=== PATIENT | female | born 1940 | race Caucasian/White ===

== ENCOUNTER 2016-07-07 23:45 | Inpatient (IN) | payer MEDICARE, OTHER ==
--- NOTE | ~2016-07-07 | HP ---
History And Physical [place] [id number] [facility] [place]. [address] NAME: JARRED GUERRERO : 40 STATUS : ADM IN [facility]#: [id number] AGE: 75 ADM/REG DATE : 07/08/16 MR#: [id number] REPORT SERV DATE: 07/08/16 DICTATED BY: JAI GIBSON DATE: 07/08/16 REPORT STATUS : Draft TRANSCRIBED BY: MODL DATE: 07/08/16 DATE OF ADMISSION: 07/07/2016 CHIEF COMPLAINT: Encephalopathy and weakness. HISTORY OF PRESENT ILLNESS: This is a 75-year-old lady with history of C5 paraplegia, diabetes, who has had frequent urinary tract infections presenting with encephalopathy and generalized weakness. The patient was apparently doing fine up until yesterday when she started sleeping all day. This morning patient woke up confused. These are very typical of her symptoms when she gets urinary tract infections and thus the decided to bring her to the ER for further evaluation and care. The patient otherwise did not have any fevers or chills, and the patient normally does not get any urinary symptoms. In the ER, patient was found to be actually quite hypotensive upon arrival with blood pressure of 72/56. The patient was also slightly tachycardic with heart rate in the 100s. Initial lab evaluation revealed an acute kidney injury with creatinine of 2.94 whereas her baseline renal function is normal. CBC showed only mild leukocytosis with white blood cell count of 11.9. Urinalysis was grossly positive for urinary tract infection. Internal Medicine consultation was requested for admission of the patient for further evaluation and care. In reviewing pertinent past medical history, the patient's actually reveals that she was actually hospitalized at [facility] recently for a pneumonia as well as urinary tract infection. The patient apparently required an ICU stay and she apparently was on a mechanical ventilator. This was between 06/13/2016 to 06/25/2016, and at discharge, patient was healthy enough to be discharged home instead of going to a rehab. REVIEW OF SYSTEMS: The patient did not have any fevers or chills. Also, 14-point review of systems reviewed and negative other than mentioned above. MEDICATIONS: The list is still pending at this time. ALLERGIES: THE PATIENT'S ALLERGY LIST IS VERY LONG AND EXTENSIVE AND SHOULD REALLY BE REVIEWED. HERE IS A LIST: 1. DULERA. 2. METHYLDOPA. 3. LISINOPRIL. 4. LEVODOPA. 5. PREDNISONE. 6. DOXYCYCLINE. 7. ADHESIVE TAPE. 8. COREG. 9. CLONIDINE. History And Physical [address] [place]. [address] NAME: JARRED GUERRERO : 40 STATUS : ADM IN [facility]#: [id number] AGE: 75 ADM/REG DATE : 07/08/16 MR#: [id number] REPORT SERV DATE: 07/08/16 DICTATED BY: JAI GIBSON DATE: 07/08/16 REPORT STATUS : Draft TRANSCRIBED BY: ELSA DATE: 07/08/16 10.DILAUDID. 11.TIMOLOL. 12.VANCOMYCIN. 13.DIOVAN. 14.VIOXX. PAST MEDICAL HISTORY: 1. C5 paraplegia. 2. History of cerebrovascular accident. 3. Chronic hypoxic respiratory failure, on 2 L of oxygen at home. 4. Obstructive sleep apnea, on CPAP. 5. Morbid obesity. 6. Lupus and Sjogren syndrome. 7. Depression and anxiety as well as panic attacks. 8. Chronic LBBB. 9. 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 10.Diabetes. 11.Fibromyalgia. 12.Dementia. 13.History of frequent UTIs and previous ESBL Pseudomonas urinary tract infection. PAST SURGICAL HISTORY: 1. PEG tube in the past. 2. Hiatal hernia. 3. C-spine surgery. 4. Hysterectomy. 5. Knee surgeries. FAMILY HISTORY: 1. The patient's mother had breast cancer. 2. The patient's father had TB. SOCIAL HISTORY: The patient does not smoke, drink alcohol, or use any illicit drugs. The patient lives at home with her who is at bedside. PHYSICAL EXAMINATION: VITAL SIGNS: Temperature 97.7, blood pressure 72/56, pulse 102, respiratory rate is 16, and saturating 95% on 4 L of oxygen per nasal cannula. NEUROLOGIC: The patient is alert and oriented x3 with no focal neurologic deficits. GENERAL: The patient is awake, does not appear to be in acute distress, and she is cooperative. NECK: No JVD. No lymphadenopathy. Normal thyroid. CHEST: No midline sternotomy wound and no tenderness to palpation. LUNGS: Fairly clear to auscultation bilaterally with normal respiratory effort on 4 L of oxygen per nasal cannula. CARDIOVASCULAR: The patient is slightly tachycardic, but otherwise, no murmurs, rubs, or gallops, and PMI is nondisplaced. History And Physical [address] [address] NAME: JARRED GUERRERO : 40 STATUS : ADM IN [facility]#: [id number] AGE: 75 ADM/REG DATE : 07/08/16 MR#: [id number] REPORT SERV DATE: 07/08/16 DICTATED BY: JAI GIBSON DATE: 07/08/16 REPORT STATUS : Draft TRANSCRIBED BY: MODKirk DATE: 07/08/16 ABDOMEN: Soft, nontender, with active bowel sounds and no organomegaly. EXTREMITIES: No edema. Normal distal pulses. No calf tenderness. SKIN: Clean, dry, warm, and intact. LABORATORY DATA: Sodium is 133, potassium 5.3, chloride 94, BUN 69, creatinine is 2.94, glucose 160, and calcium 9.4. LFTs are within normal limits. White blood cell count is 11.9, hemoglobin 11.4, and platelets 282. INR is 1.0. Lactate is 1.1. Troponin is less than 0.02. Procalcitonin level was 0.29. Urinalysis showed a large leukocyte esterase, negative for nitrite, greater than 182 white blood cells, and many bacteria. Chest x-ray is personally interpreted and is nonacute. ABG showed pH of 7.45, pCO2 of 36, PO2 of 57, and oxygen saturation of 88.2% on room air, keeping in mind that patient is on oxygen at baseline at home. ASSESSMENT: This is a 75-year-old lady with history of frequent urinary tract infections presenting with a urinary tract infection with sepsis. 1. Urinary tract infection with sepsis, the patient's blood pressures are in the 70s over 50s but the patient is making good urine and the patient is completely asymptomatic. Historically, patient has had ESBL pseudomonal infections. 2. Acute kidney injury with creatinine of 3, her baseline is normal. 3. Chronic hypoxic respiratory failure, stable. 4. The patient had a recent hospitalization at [facility] that included a mechanical ventilation. This needs to be verified. 5. C5 paraplegia. 6. Diabetes. 7. Lupus. 8. Depression, anxiety, and panic attacks. 9. Fibromyalgia. 10.History of cerebrovascular accident. 11.Obstructive sleep apnea. 12.Dementia. PLAN: The plan is to admit the patient into IMCU. The patient will be given aggressive IV fluid resuscitation. In's and out's will be closely monitored as well as electrolytes and renal function. The patient will also be closely monitored on telemetry, and I will establish a better venous access in the morning with PIC. In the meantime, the patient will be continued on meropenem. I will also go ahead and do a complete infectious workup especially since the patient was just recently released from [facility] after what seems like very complicated hospital stay. I will go ahead and request medical records from [facility]. Otherwise, for the rest of the stable past medical conditions, including diabetes, depression, anxiety, fibromyalgia, dementia, et al, I will continue home medications when the home medication becomes available. Standard DVT prophylaxis. The patient is full code at this time. MARIAH/ELSA History And Physical [address] [address] NAME: JARRED GUERRERO : 40 STATUS : ADM IN [facility]#: [id number] AGE: 75 ADM/REG DATE : 07/08/16 MR#: [id number] REPORT SERV DATE: 07/08/16 DICTATED BY: JAI GIBSON DATE: 07/08/16 REPORT STATUS : Draft TRANSCRIBED BY: ELSA DATE: 07/08/16 Jai Gibson MD / [id number] CC: Josephine Hathaway
--- NOTE | ~2016-07-07 | DS ---
Discharge Summary [facility] [address] [place]. [address] NAME: JARRED GUERRERO : 40 STATUS : ADM IN PAT#: [id number] AGE: 75 ADM/REG DATE : 07/08/16 MR#: [id number] REPORT SERV DATE: 07/24/16 DICTATED BY: CHRISTIANO NICHOLAS DATE: 07/24/16 REPORT STATUS : Draft TRANSCRIBED BY: MODL DATE: 07/24/16 ADMISSION DATE: 07/08/2016 DISCHARGE DATE: ADDENDUM: The patient's on discharge requested her Mayers catheter to be discontinued. He said that she was in diaper before admission, I called Dr. Perry and spoke personally with the patient's urologist, Dr. Perry. He recommended the patient to have Mayers removed, and he said that her is very good at managing her medical problems, and recommendation of Dr. Perry is the patient to discontinue Mayers and to be discharged without Mayers. /ELSA Christiano Nicholas M.D. / [id number] CC: Min Jose Susan R.
--- NOTE | ~2016-07-07 | EHP ---
ER History and Physical [place] [id number] [facility] [place]. [address] NAME: JARRED GUERRERO : 40 STATUS : ADM IN [facility]#: [id number] AGE: 75 ADM/REG DATE : 07/08/16 MR#: [id number] REPORT SERV DATE: 07/16/16 DICTATED BY: MACRINA LINDO DATE: 07/16/16 REPORT STATUS : Draft TRANSCRIBED BY: ELSA DATE: 07/16/16 CHIEF COMPLAINT: Sleeping all the time and confused. HISTORY OF PRESENT ILLNESS: This is a 75-year-old female with a known history of diabetes and C5 paraplegia, family states was confused and weak this morning and was sleeping and fatigued all day yesterday. Her symptoms got worse all day until they called EMS and had her transferred to the emergency room. EMS found her unstable, hypoxic, and hypotensive, and started a line and gave her fluids prior to arrival and assisted her breathing with oxygen. PAST MEDICAL HISTORY: Significant for asthma, sleep apnea, type 2 diabetes, C5 fracture with quadriplegia, lupus, Sjogren's, chronic sacral decubitus. SOCIAL HISTORY: She is nonsmoker, denies alcohol use, did not use any type of recreational drugs. She is disabled and is . REVIEW OF SYSTEMS: Positive for weakness, fever, dyspnea, confusion, and nausea. PHYSICAL EXAMINATION: VITAL SIGNS: Blood pressure is 99/56, temperature is 101.2, pulse 100 to 112, respiratory rate 20 to 24, and sats 90% requiring BiPAP. NEUROLOGIC: The patient is awake and alert and follows commands, oriented x3, no obvious focal deficits. HEENT: Within normal limits. NECK: No adenopathy, rigidity, JVD, or thyromegaly. LUNGS: Decreased breath sounds. No wheezing, rales, or rhonchi, currently on BiPAP. HEART: Regular rate. Tachycardic, but no murmurs, gallops, or rubs. ABDOMEN: Bowel sounds are normal, soft, nontender. No obvious tenderness. No rebound, guarding, mass, or organomegaly. MUSCULOSKELETAL: Normal. EXTREMITIES: Show edema, no erythema, no rashes, normal turgor. SKIN: Warm and dry. DIAGNOSES: 1. Acute renal failure. 2. Sepsis. 3. Urinary tract infection. GS/ELSA LEXIE Chua / [id number] ER History and Physical [address] [place]. [address] NAME: JARRED GUERRERO : 40 STATUS : ADM IN PAT#: [id number] AGE: 75 ADM/REG DATE : 07/08/16 MR#: [id number] REPORT SERV DATE: 07/16/16 DICTATED BY: MACRINA LINDO DATE: 07/16/16 REPORT STATUS : Draft TRANSCRIBED BY: ELSA DATE: 07/16/16 CC: Min Lopez NP
--- NOTE | ~2016-07-07 | CN ---
Consultation Report [facility] [address] [place]. [address] NAME: JARRED RAMSEY : 40 STATUS : ADM IN PAT#: [id number] AGE: 75 ADM/REG DATE : 07/08/16 MR#: [id number] REPORT SERV DATE: 07/09/16 DICTATED BY: CLIF YAO DATE: 07/08/16 REPORT STATUS : Draft TRANSCRIBED BY: MODL DATE: 07/08/16 NEPHROLOGY CONSULT DATE OF CONSULTATION: 07/08/2016 REQUESTING PHYSICIAN: Nazia Dong M.D. REASON FOR CONSULT: Acute kidney injury. HISTORY OF PRESENT ILLNESS: Ms. Ramsey is a pleasant 75-year-old white female, who has had previous episodes of acute kidney injury and is followed in the office of [facility] by Dr. Yeh. She has not been seen there since approximately 07/2015, when creatinine was 1.0. Reviewing records shows that she had acute kidney injury in 09/2013, with creatinine as high as 2.5 and again in 11/2015, with creatinine 1.17. She was recently at [facility] with pneumonia and respiratory failure requiring ventilator with a creatinine that peaked at 1.5. She was admitted through the emergency room yesterday with hypotension having a systolic blood pressure in the 70s and acute kidney injury. On presentation, BUN was 69, creatinine 2.9, potassium 5.3. Urinalysis suggested UTI and urine culture is presently pending. Blood cultures are pending and procalcitonin was normal. Today, her creatinine is down at 2.3. She is nonoliguric without a Mayers catheter. PAST MEDICAL HISTORY: 1. C5 paraplegia. 2. Neurogenic bladder with recurrent UTIs with E. coli ESBL. Apparently, had chronic indwelling Mayers catheter for approximately three months until her recent hospitalization at [facility]. 3. Hypotension. 4. Depression. 5. History of stroke. 6. Reported dementia. 7. Oxygen-dependent COPD. 8. Fibromyalgia. 9. History of bilateral mastectomies. 10.Lupus. 11.Sjogren's. 12.Sleep apnea. MEDICATIONS: Albuterol nebulizers and inhaler, Xanax, aspirin, vitamin D3, Flexeril p.r.n., Cardizem 180 mg daily, Cymbalta, Lasix 60 mg at bedtime, Mucinex p.r.n., hydralazine 10 mg b.i.d., Lortab p.r.n., Prinivil 5 mg at bedtime, Singulair 10 mg daily, MiraLAX, Mirapex, Lyrica 75 mg b.i.d., Exelon patch, Aldactone 25 mg daily. Consultation Report [address] [place]. [address] NAME: JARRED RAMSEY : 40 STATUS : ADM IN PAT#: [id number] AGE: 75 ADM/REG DATE : 07/08/16 MR#: [id number] REPORT SERV DATE: 07/09/16 DICTATED BY: CLIF YAO DATE: 07/08/16 REPORT STATUS : Draft TRANSCRIBED BY: ELSA DATE: 07/08/16 FAMILY HISTORY: Significant for a nephrectomy in her mother, but no ESRD. SOCIAL HISTORY: Nonsmoker. . Supportive . Lives in [place], [place]. REVIEW OF SYSTEMS: Significant for events as per HPI. PHYSICAL EXAMINATION: VITAL SIGNS: Temperature 97.7, pulse 104, respirations 25, blood pressure 195/80, 95% sat 3 L per nasal cannula. Intake and output are not recorded. GENERAL: This is a pleasant elderly white female, who is awake, alert, oriented, and cooperative with the exam. She is being assisted with lunch by her . She is awake, alert, oriented. HEENT: Sclerae without icterus. Conjunctivae not injected. Oropharynx is clear. Mucous membranes are dry. NECK: No JVD. LUNGS: She has diffuse bilateral rhonchi without dyspnea or tachypnea on oxygen per nasal cannula. CARDIAC: Heart rate tachycardic. Rhythm regular. No rub. ABDOMEN: Obese, soft, nontender, nondistended. Bowel sounds present throughout without rebound, guarding, peritoneal signs. EXTREMITIES: Without edema. SKIN: Without rash. NEUROLOGIC: Grossly nonfocal. She does have paraplegia. MUSCULOSKELETAL: Shows no active gout with mild RA deformities. : Deferred. She has cloudy yellow urine in the Mayers catheter. PSYCHIATRIC: Mood and affect are appropriate. LABORATORY DATA: Sodium 137, potassium 4.6, bicarb 25, BUN 62, creatinine 2.3, GFR 20 mL/minute, calcium 8.3, albumin 3.1. Troponin and LFTs are normal. White count down from 11.9-7.0, hemoglobin 9.6, platelets 242,000. INR 1.0. No eosinophils on the differential. Chest x-ray without active infiltrates. ASSESSMENT AND PLAN: Ms. Ramsey has developed another episode of acute kidney injury in the setting of urinary tract infection with hypotension on arrival, anemia, leukocytosis, hypoalbuminemia, paraplegia, oxygen dependent chronic obstructive pulmonary disease, lupus, and Sjogren's. At this point, I suspect she likely had a component of intravascular volume depletion in addition to renal hypoperfusion due to hypotension on admission from possible sepsis physiology. Hold KENTRELL inhibitor, Lasix, and Aldactone. Continue IV fluid hydration. Renal function has improved since admission and hopefully, we will continue to recover to baseline without the need for dialysis. Defer antibiotics to the primary service. Consider evaluation. I Consultation Report [address] [place]. [address] NAME: JARRED RAMSEY : 40 STATUS : ADM IN [facility]#: [id number] AGE: 75 ADM/REG DATE : 07/08/16 MR#: [id number] REPORT SERV DATE: 07/09/16 DICTATED BY: CLIF YAO DATE: 07/08/16 REPORT STATUS : Draft TRANSCRIBED BY: ELSA DATE: 07/08/16 suspect she likely needs to have at least bladder self caths at home and possibly consider replacing Mayers catheter versus proceeding with ileal conduit in the future if infections continue. Her urologist is Dr. Perry. updated at bedside. Continue supportive care. Watch labs. Continue to follow. CHRISTIAN/ELSA Clif aYo M.D. / [id number] CC: Nazia Dong M.D.
--- NOTE | ~2016-07-07 | CN ---
Consultation Report [facility] [address] [place]. [address] NAME: JARRED GUERRERO : 40 STATUS : ADM IN PAT#: [id number] AGE: 75 ADM/REG DATE : 07/08/16 MR#: [id number] REPORT SERV DATE: 07/11/16 DICTATED BY: WILLIS FRANCE DATE: 07/11/16 REPORT STATUS : Draft TRANSCRIBED BY: MODKirk DATE: 07/11/16 CONSULTATION DATE OF CONSULTATION: 07/10/2016 HISTORY: This is a 75-year-old white female who was admitted to [facility] on 07/08/2016 with hypotension, mental status changes, weakness, confusion, etc. In the ER she was felt to have a septic type syndrome and was admitted. Ultimately, her urine cultures grew out ESBL E coli. She has been appropriately treated and is now on Merrem. She had an acute renal injury with a creatinine of 3 at the time of admission and this has now normalized. She is improved considerably with medical management. I have been asked to see her due to her history of UTIs. She is a C5 paraplegic. She has a neurogenic bladder and neurogenic bowel. She is incontinent of both urine and feces. Both drained into the same diaper. She is cared for at home by her . She is reliant upon him for complete care. He reports that he changes her diaper and cleans her three to four times a day. I have seen her in the office and at one point, there was a question of urinary retention, but the performed an intermittent catheterization program on her at home and her residuals really were not that large. He thought due to her urinary leakage it was easier to manage her with a Mayers. She has had significant recurrent UTIs either both with and without a Mayers. She was actually recently hospitalized at [facility] with I believe pneumonia as well as a UTI. She has been on methenamine suppression and has gotten infections even though we have been using this. Her says that normally her urinary tract infections manifest with confusion, lethargy, and sometimes fever. He reports having her in the hospital as often as once a month for infection. Review of urine cultures show ESBL E coli UTI in January, March, twice in June, and now in July. Prior to that, she has had frequent UTIs with other organisms including Pseudomonas and E coli. PAST MEDICAL HISTORY: Otherwise extensive and includes fairly morbid obesity, history of a CVA, respiratory insufficiency on oxygen at home, sleep apnea, lupus, Sjogren syndrome, depression, anxiety, panic attacks, bundle branch block, sacral decubitus, diabetes, a question of some degree of dementia. PAST SURGICAL HISTORY: She describes having surgery for C-spine, hiatal hernia, hysterectomy, and knee surgeries. She has also had breast cancer and has had a TRAM flap in the past, and she describes repair of an extensive abdominal hernia with mesh. SOCIAL HISTORY: She lives at home. She is completely disabled. She is completely reliant on her as her caregiver. CURRENT MEDICATIONS: Current medications have been reviewed. At this point in time, her only medication is methenamine. She is on Merrem for her UTI. ALLERGIES: SHE HAS AN EXTENSIVE ALLERGY LIST INCLUDING ANTIBIOTICS WITH VANCOMYCIN AND DOXYCYCLINE. Consultation Report [address] [place]. [address] NAME: JARRED GUERRERO : 40 STATUS : ADM IN [facility]#: [id number] AGE: 75 ADM/REG DATE : 07/08/16 MR#: [id number] REPORT SERV DATE: 07/11/16 DICTATED BY: WILLIS FRANCE DATE: 07/11/16 REPORT STATUS : Draft TRANSCRIBED BY: ELSA DATE: 07/11/16 PHYSICAL EXAMINATION: GENERAL: She is a pleasant, white female, in no distress. She is alert, oriented, and conversive. She is afebrile. VITAL SIGNS: Stable. ABDOMEN: Quite morbidly obese. She has an old Pfannenstiel incision. She has an old incision slightly more superior that runs from iliac crest, she has incision around her belly button, all of which are well healed. She is wearing a diaper. She has a Mayers catheter indwelling, the urine is clear grossly. LABORATORY DATA: Currently white count is 6.9, hemoglobin and hematocrit 10.6 and 32.8. BUN and creatinine are 30 and 1.0 respectively. Most recent urine culture shows ESBL E coli. IMPRESSION: 1. Admitted with hypotension, confusion, consistent with septic picture. 2. Extended-Spectrum Beta-Lactamase Escherichia coli urinary tract infection. 3. History of frequent recurrent urinary tract infections. 4. Neurogenic bladder with complete urinary incontinence. 5. Bowel incontinence. 6. Acute kidney injury, now resolved. 7. Chronic respiratory failure, improved. 8. Sleep apnea. 9. Obesity. 10.Diabetes. 11.C5 quadriplegia. 12.Remote cerebrovascular accident. 13.Lupus. 14.Sjogren syndrome. RECOMMENDATIONS: She really has not done well clinically, no matter how we have attempted to manage her bladder. According to her , the number and frequency of her UTIs is about the same whether she has a catheter draining her bladder or not. Institution of daily antibiotics and/or daily methenamine has not seem to have made a difference either. I have spent some time reviewing other management options including potentially suprapubic catheter and/or urinary diversion with an ileal conduit. We will solicit opinions from my partners on this. At this point, she and her are still thinking over management options. Her remains insistent upon performing all care functions himself at home. Thank you for the consult. ORQUIDEA/ELSA Willis France, Consultation Report [address] [place]. [address] NAME: JARRED GUERRERO : 40 STATUS : ADM IN [facility]#: [id number] AGE: 75 ADM/REG DATE : 07/08/16 MR#: [id number] REPORT SERV DATE: 07/11/16 DICTATED BY: WILLIS FRANCE DATE: 07/11/16 REPORT STATUS : Draft TRANSCRIBED BY: ELSA DATE: 07/11/16 Min / [id number] CC: Nazia Dong M.D.
--- NOTE | ~2016-07-07 | IDS ---
Interim Discharge Summary [facility] [address] [place]. [address] NAME: JARRED GUERRERO : 40 STATUS : ADM IN PAT#: [id number] AGE: 75 ADM/REG DATE : 07/08/16 MR#: [id number] REPORT SERV DATE: 07/11/16 DICTATED BY: Nazia HENSON DATE: 07/11/16 REPORT STATUS : Draft TRANSCRIBED BY: MODL DATE: 07/11/16 ADMISSION DATE: 07/08/2016 DISCHARGE DATE: DATE OF INTERIM SUMMARY: 07/11/2016. DIAGNOSES AT THE TIME OF INTERIM SUMMARY: 1. Sepsis syndrome with shock, present on admission, resolved. 2. Extended spectrum beta-lactamases Escherichia coli urinary tract infection, present on admission, resolving. 3. Acute kidney injury, resolving. 4. Toxic metabolic encephalopathy, acute, present on admission, resolved. 5. Acute on chronic respiratory failure with hypoxia and hypercapnia, resolved. 6. Sleep apnea. 7. Type 2 diabetes. 8. C5 spastic quadriplegia. 9. Old cerebrovascular accident. 10.Lupus/Sjogren's syndrome. CONSULTS: Urology and Nephrology. PROCEDURES: None. BRIEF SUMMARY: A 75-year-old female with a plethora of medical problems including a C5 injury with spastic quadriplegia and neurogenic bladder. She has had recurrent UTIs and has done poorly with a catheter and without a catheter. She is currently without a catheter and being managed at home by her who provides all of her care. She was admitted on 07/08/2016 with sepsis syndrome with shock, felt stemming from underlying urinary tract infection, associated with acute kidney injury and respiratory failure. The patient initially managed in the intermediate care unit with BiPAP therapy, aggressive fluids, and IV antibiotics. The patient has made significant recovery from her initial condition and her culture has grown an ESBL E coli. She has had previous ESBL E coli infections in the past. The patient is currently on day 4 of 7 of Merrem therapy with near-complete resolution of her other symptoms, her mental status has returned to normal, and she is on her baseline O2. Urology has seen the patient, and they have talked to the family about options such as an ileal conduit or suprapubic catheter, but no decision has been made regarding these procedures. The current plan is to complete her Merrem therapy and then discharge her home with the care of her , likely 07/14/2016. Any future procedures would likely be done as an outpatient once her urinary tract has been stabilized and further discussion regarding those options has been undertaken. The patient's hospitalist care will be provided by another member of the team starting 07/12/2016, with ongoing co-management by Urology. Of note, the patient's renal function has normalized and Nephrology is currently signed off. I have reviewed the current antimicrobial therapy and culture results with our ID pharmacist. Their recommendations are at this point to continue with IV Merrem to complete a seven-day course. Interim Discharge Summary [place] [id number] [facility] [place]. [address] NAME: JARRED GUERRERO : 40 STATUS : ADM IN PAT#: [id number] AGE: 75 ADM/REG DATE : 07/08/16 MR#: [id number] REPORT SERV DATE: 07/11/16 DICTATED BY: Nazia HENSON DATE: 07/11/16 REPORT STATUS : Draft TRANSCRIBED BY: ELSA DATE: 07/11/16 [facility]/ELSA Nazia Henson M.D. / [id number] CC: Nazia Henson M.D.
--- NOTE | ~2016-07-07 | DS ---
Discharge Summary [facility] [address] [place]. [address] NAME: JARRED GUERRERO : 40 STATUS : ADM IN [facility]#: [id number] AGE: 75 ADM/REG DATE : 07/08/16 MR#: [id number] REPORT SERV DATE: 07/24/16 DICTATED BY: CHRISTIANO NICHOLAS DATE: 07/24/16 REPORT STATUS : Draft TRANSCRIBED BY: MODL DATE: 07/24/16 ADMISSION DATE: 07/08/2016 DISCHARGE DATE: 07/24/2016 Please refer to history of present illness dictated by Dr. Jai Gibson on 07/08/2016. Please also refer to interim discharge summary dictated by nurse practitioner, Shahid Townsend, on 07/21/2016. Please also refer to note of Dr. Suh written on 07/22/2016. During this hospitalization, the patient was seen by multiple hospitalists. On admission, she was seen by Dr. Gibson, and then when she was in IMCU, she was seen by Dr. Dong, by Dr. Romana Dyson, by Shahid Townsend, nurse practitioner, as well as by Dr. Suh. I personally saw this patient only yesterday on 07/23/2016 and today on the day of discharge. Yesterday, the patient was transferred from intermediate care unit to the floor to my care and she is in stable condition. DISCHARGE DIAGNOSES: 1. Recurrent urinary tract infection with Escherichia coli extended-spectrum beta- lactamase present on admission, currently treated. 2. Status post diverting colostomy per recommendation of Urology, done by general surgeon, Dr. Christiano De La Garza. 3. C5 paraplegia. 4. Diabetes type 2, controlled. 5. Hypertension, controlled. 6. Morbid obesity. 7. Obstructive sleep apnea. 8. Encephalopathy, present on admission, resolved. 9. Chronic indwelling Mayers catheter. 10.Status post acute kidney injury, currently resolved. 11.Dementia. CONSULTANTS ON THE CASE: Dr. Allen of Nephrology, Dr. Ron Perry of Urology, Dr. Christiano De La Garza of General Surgery for diverting colostomy. HOSPITAL COURSE: Per interim discharge summary dictated by Shahid Townsend on 07/21/[address] Dong dictated on 07/11/2016. Briefly, the patient had long hospitalization. Her kidney function currently normalized and she had diverting colostomy for the prevention of frequent urinary infections. She has an indwelling Mayers catheter and her urinary infection is treated. She is very stable. She is doing well on the floor for the last two days when I saw her. Today, Dr. Christiano De La Garza evaluated the patient's colostomy and he recommended the patient to be discharge. The patient's underwent teaching for colostomy care and he is comfortable with it, so she is going to be discharged home with the home health. Her kidney function normalized and it is normal since 2016. Her creatinine today is 0.92. I discussed with school library media specialist's nurse practitioner, Sho. She recommended the Discharge Summary [address] [place]. [address] NAME: JARRED GUERRERO : 40 STATUS : ADM IN PAT#: [id number] AGE: 75 ADM/REG DATE : 07/08/16 MR#: [id number] REPORT SERV DATE: 07/24/16 DICTATED BY: CHRISTIANO NICHOLAS DATE: 07/24/16 REPORT STATUS : Draft TRANSCRIBED BY: ELSA DATE: 07/24/16 patient to hold her home Lasix, to hold lisinopril, and hold spironolactone, and follow up with Dr. Josephine Hathaway in a week and she will make a decision if the patient will need to restart her Lasix and lisinopril. The patient's blood pressure has been controlled on her current Cardizem and hydralazine. This all was discussed with the patient's . It was explained that spironolactone and lisinopril can cause hyperkalemia. The patient on admission had hyperkalemia, so it was explained that she needs to check her BMP per Dr. Hathaway next week, and then if necessary, she can make a decision to restart these medications as well as regarding her Lasix if she needs to restart her Lasix. Currently, school library media specialist does not recommended these medications to be restarted. DISCHARGE MEDICATIONS: Cyclosporine 1 drop ophthalmic twice a day, vitamin D 1000 units a day, coenzyme Q 200 mg a day, diltiazem ER 180 mg a day, Cymbalta 30 mg in the morning and 60 at bedtime, Xalatan eye drops daily, Hiprex 1 g daily, Singulair 10 mg daily, MiraLAX 17 g daily, Mirapex 0.5 mg at bedtime, Lyrica 75 twice a day, Exelon 4.6 mg patch topically daily, hydralazine 10 mg twice a day, albuterol MDI 2 puffs inhaled daily p.r.n. and nebulized as needed; the patient to stop her Lasix, to follow up with Josephine Hathaway in a week to decide if it needs to be restarted; Flexeril 10 mg a day, hydrocodone with acetaminophen 5/325 twice daily p.r.n. for pain; the patient to stop lisinopril; Xanax 0.5 mg at bedtime and also 0.5 as needed for insomnia; Aldactone; zinc oxide one application daily; aspirin restart in days; cranberry juice 500 twice a day; monascus red yeast 600 twice a day; Mucinex 600 mg a day. DISCHARGE LABS: Her BMP showed sodium 138, potassium 4.5, chloride 104, carbon dioxide 28, BUN 31, creatinine 0.92, blood sugar 107. Her blood pressure today was 144/50 and 134/64. DISCHARGE RECOMMENDATIONS: The patient will go home with home health and with indwelling Mayers catheter. She will need to see Dr. Perry in two months. She will need to see Josephine Hathwaay in seven days with a BMP done in one week per Dr. Hathaway. Will follow up with Dr. Christiano De La Garza on 08/01/2016, 0830 hours. I spent 45 minutes on discharge. The patient was discharged in a stable condition. MG/MODL Christiano Nicholas M.D. / [id number] CC: Christiano Nicholas M.D.
--- NOTE | ~2016-07-07 | IDS ---
Interim Discharge Summary [facility] [address] [place]. [address] NAME: JARRED GUERRERO : 40 STATUS : ADM IN [facility]#: [id number] AGE: 75 ADM/REG DATE : 07/08/16 MR#: [id number] REPORT SERV DATE: 07/21/16 DICTATED BY: SHAHID TANNER DATE: 07/21/16 REPORT STATUS : Draft TRANSCRIBED BY: MODL DATE: 07/21/16 ADMISSION DATE: 07/08/2016 DISCHARGE DATE: REASON FOR ADMISSION: This is a 75-year-old lady with a history of C5 paraplegia, diabetes, and frequent urinary tract infections presenting with encephalopathy and generalized weakness. She was admitted for UTI with sepsis, acute kidney injury on CKD 3, and metabolic encephalopathy. INTERIM DISCHARGE DIAGNOSES: 1. Recurrent extended spectrum beta-lactamase urinary tract infection with sepsis with chronic Mayers catheter. 2. Status post acute kidney injury on chronic kidney disease. 3. Status post encephalopathy. 4. Diabetes type 2. 5. Iron-deficiency anemia, status post IV iron. HOSPITAL COURSE: 1. ESBL UTI. Recurrent with sepsis and chronic Mayers. The patient had been recently hospitalized for UTI with sepsis and has had recurrent ESBL E. coli UTIs. Her last discharge was only eight days prior to admission at this time. After discussion between the hospitalist team and Urology, decision was made that with patient's stool incontinence that the best approach would likely be to get her a diverting colostomy. Dr. Grajeda would see the patient and agree. CT scan of the belly was performed preop, and unfortunately, Dr. Grajeda was leaving town for 10 days. His associates on-call over the weekend were unable to perform procedure, but Dr. Alvarado graciously agreed to perform the procedure today at 4 p.m. The patient has been n.p.o. after midnight and had bowel prep with 1 gallon of GoLYTELY, however, did not have any bowel movements unbelievably after taking GoLYTELY, so enemas are being performed today. If clear can be achieved, then the patient will go to surgery today, if not, then it will likely be delayed until tomorrow. 2. Status post acute kidney injury. Creatinine on admission was 2.94. After IV fluids, she has trended down to a creatinine of 0.89. 3. Iron-deficiency anemia. The patient with anemia, iron levels checked, a ferritin level was 91 and iron sat of 13%. She was given IV ferrous gluconate. CURRENT MEDICATIONS: 1. Apresoline 10 mg p.o. q.12 hours. 2. Brovana inhaled 50 mcg b.i.d. 3. Cardizem CD 180 mg p.o. daily. 4. CoQ10 of 200 mg p.o. daily. 5. Cymbalta 30 mg p.o. q.a.m. and 60 mg p.o. q.h.s. 6. DuoNeb q.4 hours. 7. Exelon 4.6 mg topical patch daily. 8. Heparin 5000 units subcu q.8 hours. 9. Hiprex 1 g p.o. daily. Interim Discharge Summary [place] [address] [place]. [address] NAME: JARRED GUERRERO : 40 STATUS : ADM IN [facility]#: [id number] AGE: 75 ADM/REG DATE : 07/08/16 MR#: [id number] REPORT SERV DATE: 07/21/16 DICTATED BY: SHAHID TANNER DATE: 07/21/16 REPORT STATUS : Draft TRANSCRIBED BY: ELSA DATE: 07/21/16 10.Lyrica 75 mg p.o. b.i.d. 11.MiraLAX powder one packet p.o. daily. 12.Mirapex 0.5 mg p.o. q.h.s. 13.Mycostatin topical powder applied to affected areas b.i.d. 14.Pulmicort Respules 1 mg inhaled b.i.d. 15.Restasis ophthalmic drops. 16.Singulair 10 mg p.o. q.h.s. 17.Vitamin D 1000 units p.o. daily. 18.Xalatan 0.005% ophthalmic. CURRENT PLAN: The patient to have diverting colostomy today if possible; tomorrow, if bowel prep unable to be satisfactorily performed for the day. MAX/SARAHL Shahid Tanner APN / [id number] CC: Min Lopez M.D. Coleman Arnold, M.D.
--- NOTE | ~2016-07-07 | OP ---
Record Of Operation [facility] [address] [place]. [address] NAME: JARRED GUERRERO : 40 STATUS : ADM IN PAT#: [id number] AGE: 75 ADM/REG DATE : 07/08/16 MR#: [id number] REPORT SERV DATE: 07/21/16 DICTATED BY: SUGEY MCCULLOUGH DATE: 07/21/16 REPORT STATUS : Draft TRANSCRIBED BY: MODL DATE: 07/21/16 DATE OF PROCEDURE: 07/21/2016 PREOPERATIVE DIAGNOSIS: Chronic urinary tract infections. POSTOPERATIVE DIAGNOSIS: Chronic urinary tract infections. PROCEDURE: Open end-colostomy formation. SURGEON: Sugey Mccullough M.D. RESIDENT SURGEON: Olaf Garcia MD ANESTHESIA: General. ESTIMATED BLOOD LOSS: 20 mL. IV FLUIDS: 900 mL of crystalloid. SPECIMEN: None. DRAINS: None. COMPLICATIONS: None. DESCRIPTION OF PROCEDURE: After informed consent was obtained, the patient taken back to the operative theater, the patient was laid on the operating room table in the supine position. The patient was given adequate analgesia and anesthesia and then successfully endotracheally intubated. The surgery site was then prepped and draped in the standard fashion. A formal time-out was then performed. Appropriate preoperative antibiotics had been administered. All present operating room were in agreement and elected to proceed for the procedure. We began by making a transverse left lower quadrant incision using electrocautery, and dissected down through the anterior abdominal fascia. We used electrocautery to incise this and then in the muscle-splitting fashion got down to the posterior fascia, grasped and elevated it, then sharply incised it. We thus gained access to the abdominal cavity. We then located the sigmoid colon. Oriented to make sure we knew which one was proximal and which was one then distal. We then made a window through the mesentery bluntly, then used a LOLIS 75 mm stapler blue load to then come through that window in stable and transect the sigmoid colon. LigaSure was then used to transect the mesentery and obtained hemostasis, and freed up the proximal ends and then we transected colon to bring up an end-ostomy. We were then able to pull the proximal portion of colon up through our incision site. We then reapproximated the fascia, lateral and medial to this, the closer defect well aligned our end colostomy to be up to the skin level. The fascia was reapproximated with 0 Nurolon on MO-6. We closed it medially and laterally until our fascia was snug around our end colostomy. We then secured our end-colostomy to our fascia with 3-0 Vicryl in a simple interrupter fashion, medially and laterally. We then reapproximated the subcutaneous tissue [facility] [place] [id number] [place]. [address] NAME: JARRED GUERRERO : 40 STATUS : ADM IN PAT#: [id number] AGE: 75 ADM/REG DATE : 07/08/16 MR#: [id number] REPORT SERV DATE: 07/21/16 DICTATED BY: SUGEY MCCULLOUGH DATE: 07/21/16 REPORT STATUS : Draft TRANSCRIBED BY: ELSA DATE: 07/21/16 with 3-0 Vicryl in a simple interrupted fashion. We then reapproximated the skin edges, medial and lateral as well with 4-0 Monocryl in a simple subcuticular running stitch fashion. We then used a 3-0 Vicryl brooked our colostomy into our skin edges. At the end, we could digitize the colostomy and easily get her finger down below the level of fascia. Colostomy appliance was then cut to fit and placed on the end-colostomy. Sterile drapes were then broken down. The patient was reversed from anesthesia. Successfully extubated. The patient was awake, alert, and vital signs were stable. The patient was transferred to recovery room in stable condition. DICTATED BY: MD TJ Juarez/ELSA Sugey Mccullough M.D. / [id number] CC: Romana Dyson M.D.
[2016-07-07 19:23] LABS: BASOPHILS 0.2 %; BASOPHILS ABSOLUTE 0.02 10/3/uL (0.0-0.16); EOSINOPHILS 1.1 %; EOSINOPHILS ABSOLUTE 0.13 10/3/uL (0.0-0.53); HEMATOCRIT 34.5 % (36.0-48.0); HEMOGLOBIN 11.4 g/dL (12.0-16.0); IMMATURE GRANULOCYTES 0.4 %; IMMATURE GRANULOCYTES ABSOLUTE 0.05 10/3/uL (0.0-0.11); LYMPHOCYTES 11.9 %; LYMPHOCYTES ABSOLUTE 1.42 10/3/uL (0.67-4.30); MEAN CORPUSCULAR HEMOGLOB 29.1 pg (26.0-34.0); MEAN PLATELET VOLUME 10.1 fL (9.2-13.0); MONOCYTES 9.4 %; MONOCYTES ABSOLUTE 1.12 10/3/uL (0.21-1.20); NEUTROPHILS ABSOLUTE 9.16 10/3/uL (2.02-8.40); PLATELET COUNT 282 10/3/uL (150-400); RBC DISTRIBUTION WIDTH 14.2 % (12.0-16.0); RED CELL COUNT 3.92 10/6/uL (4.0-5.6)
[2016-07-07 19:24] LABS: MANUAL DIFF NO %; WHITE BLOOD CELLS 11.9 10/3/uL (4.5-10.5)
[2016-07-07 19:40] LABS: A/G RATIO 0.7 (0.7-1.9); ALBUMIN 3.1 G/DL (3.5-5.0); ALKALINE PHOSPHATASE 87 U/L (45-117); CALCIUM, SERUM 9.4 MG/DL (8.5-10.4); CHLORIDE, SERUM 94 MMOL/L (96-112); POTASSIUM, SERUM 5.3 MMOL/L (3.5-5.3); SGOT(AST) 16 U/L (5-40); SGPT(ALT) 24 U/L (5-65); SODIUM, SERUM 133 MMOL/L (135-148); TOTAL BILIRUBIN 0.7 MG/DL (0-1.2); TOTAL PROTEIN 7.6 G/DL (6.0-8.5); TROPONIN I <0.02 NG/ML (<0.05)
[2016-07-07 19:41] LABS: BUN (BLOOD UREA NITROGEN) 69 MG/DL (6-23); CO2 (CARBON DIOXIDE) 27 MMOL/L (24-34); CREATININE 2.94 MG/DL (0.55-1.02); GFR AFRICAN AMERICAN 17 ML/MIN (>=60); GFR NON AFRICAN AMERICAN 15 ML/MIN (>=60); GLOBULIN 4.5 G/DL (2.5-4.1); GLUCOSE, SERUM 160 MG/DL (60-99)
[~2016-07-07 23:45] MED LIST: ACCUNEB INH; ALAVERT10 MG PO; ALBUTEROL5 INH; AMOXIL500 MG PO; APRES10B PO; APRES25 PO; ASAB PO; ASTELIN NAS; AT25 PO; ATROVENTUD INH; AURALGAN OT; BEN25 PO; BISR PR; CALMOSEPTINE O2.5 OZ TOP; CARD120 PO; CARD60 PO; CARD90 PO; CARDCD180 PO; CARDIZEM LA120 MG PO; CARTIA XT180 MG/24 PO; CAT3 PO; CEFT5 PO; CEREFOLI1 PO; CIP2 PO; CIP5 PO; CO Q-10100 MG PO; CO Q-10200 MG PO; CO Q-1050 MG PO; COENZYME Q10400 MG PO; CRANBERRY1 TAB OR; CRANBERRY500 MG PO; CYMBALTA; CYMBALTA30 PO; CYMBALTA60 PO; D 5000 PO; DECONGEST; DESITIN TOP; DILAUDID8 MG PO; DILT-XR120 MG PO; DILT-XR180 MG PO; DUONEB INH; DURICEF PO; EAR DROPS OT; EVENING OR; EXELON4.6T TOP; FEOSOLEL PO; FERROUS SULF325 M1 PO; FISH-EPA1000 MG PO; FLAXSEED OIL1000 MG PO; FLEX PO; FLONASE NAS; FLORASTOR250 MG PO; FORTAZ IM; FORTAZ IV; FORTEO; FORTEO SC; FRAGMIN SC; GLUCCHONDR PO; HALF81 PO; HYZAAR 100/25 T1 TAB PO; HYZAAR 50/12.51 TAB PO; IRON SUPPLEMENT OTC PO; IRON SUPPLEMENT PO; JUVEN PO; L20 PO; LEVAQUIN750 MG PO; LIOR10 PO; LOTRIMIN AF12 TOP; LOTRIMIN-MYCELE15 GM TOP; LOVENOX40 SC; LYRICA75 PO; MACROBID PO; MACRODANTIN 10100 MG PO; MAGNESIUM OTC PO; MAGNESIUM SUPPLEMENT PO; MAXIMUM D3 PO; MIRALAXPKT; MIRALAXPKT PO; MIRAPEX5 PO; MOBIC15 MG PO; MOMUD PO; MUCINEX DM1 TAB PO; MUCINEX1200 MG PO; MVI PO; NASAL DECONGESTANT NAS; NEXIUM40 PO; NITROSTAT0.4 MG SL; NORCO1 TA1 PO; NORV5 PO; NYQUIL PO; NYSTATIN CREAM TOP; OCEAN NAS; OS500+D PO; PATANOL OPH; PCET PO; PHILLIP COLON HEALTH PO; PRAVACHOL40 MG PO; PRILOSEC40 MG PO; PROBIOTIC; PROBIOTIC PO; PROTONIX PO; PROVENT20 INH; PROVENTSOL INH; PROVIGIL2 PO; RED YEAS1 PO; REG5 PO; RESTASIS OPH; RX EYE DROP OPH; SENTAB PO; SINGULAIR1 PO; SINGULAIR5 PO; SPIRIVA INH; SPIRO25 PO; SYSTANE OPH; T PO; TAZTIA XT PO; TUMSROLL PO; VIB100 PO; VICODIN ES1 TAB PO; VITAMIN B-122500 MCG SL; VITAMIN C OTC PO; VITAMIN C PO; VITAMIN D1000 UNI1 PO; VITAMIN D31000 UNIT PO; X5 PO; XALAT OPH; XANAX1 MG PO; XYZAL5 MG PO; ZOCOR10 PO; ZOCOR20 PO; ZOCOR40 PO; ZOFRAN4 PO; ZYRTEC CHILD PO; [UNRECOGNIZED DRUG - OTHER]; [UNRECOGNIZED DRUG - OTHER] SC
[2016-07-08 01:53] LABS: BE (BASE EXCESS) 0.9 MEQ/L (0 +/- 2.5); CARBOXYHEMOGLOBIN 1.9 % (0-3); HCO3 (ACTUAL BICARBONATE) 24.6 MEQ/L (23-27); INSTRUMENT SERIAL # 8087; METHEMOGLOBIN 0.3 % (0-3); O2 CONTENT 14.6 VOL% (18-24); PCO2 (CO2 TENSION) 36 MMHG (35-45); PO2 (O2 TENSION) 57 MMHG (79-93); SAMPLE Arterial; pH 7.45 (7.37-7.43)
[2016-07-08 02:24] LABS: PROTIME (NOT ORD) 13.5 SEC (12.0-14.5)
[2016-07-08 02:42] LABS: LACTATE 1.1 MMOL/L (0.3-2.4)
[2016-07-08 03:02] LABS: ASCORBIC ACID (UR NOT ORDER) NEG (NEG); BILIRUBIN, URINE NEGATIVE (NEG); KETONE, URINE NEGATIVE (NEG); LEUKOCYTE ESTERASE(NOT OR LARGE (NEG)
[2016-07-08 03:06] LABS: NITRITE (URINE) NEG (NEG); WBC (NOT ORDERED) (RFLEX) > 182 (0-5)
[2016-07-08] MEDS ORDERED: DILT-XR180 MG PO (05:35)
[2016-07-08] MEDS ORDERED: SPIRO25 PO ×3 (05:35→07:44)
[2016-07-08] MEDS ORDERED: CYMBALTA30 PO (05:36)
[2016-07-08] MEDS ORDERED: SINGULAIR1 PO (05:36)
[2016-07-08] MEDS ORDERED: HIPREX1 GM PO (05:37)
[2016-07-08] MEDS ORDERED: MIRAPEX5 PO (05:38)
[2016-07-08] MEDS ORDERED: L20 PO (05:38)
[2016-07-08] MEDS ORDERED: DITRO5 PO (05:39)
[2016-07-08] MEDS ORDERED: CYMBALTA60 PO (05:41)
[2016-07-08] MEDS ORDERED: XANAX XR0.5 MG PO (05:41)
[2016-07-08] MEDS ORDERED: LYRICA75 PO (05:42)
[2016-07-08] MEDS ORDERED: EXELON4.6T TOP (05:42)
[2016-07-08] MEDS ORDERED: APRES10B PO (05:42)
[2016-07-08] MEDS ORDERED: RESTASIS OPH (05:43)
[2016-07-08] MEDS ORDERED: XALAT OPH (05:43)
[2016-07-08] MEDS ORDERED: FLEX PO (05:43)
[2016-07-08] MEDS ORDERED: NORCO1 TA1 PO (05:44)
[2016-07-08] MEDS ORDERED: L40 PO (05:46)
[2016-07-08] MEDS ORDERED: PRIN5 PO (05:46)
[2016-07-08] MEDS ORDERED: X5 PO ×2 (07:41)
[2016-07-08] MEDS ORDERED: PROAIR HFA INH (07:45)
[2016-07-08] MEDS ORDERED: DESITIN TOP (07:45)
[2016-07-08] MEDS ORDERED: MIRALAX POWDER1 PKT PO (07:45)
[2016-07-08] MEDS ORDERED: ALBUTEROL0.083 % INH (07:45)
[2016-07-08] MEDS ORDERED: CRANBERRY500 MG PO (07:46)
[2016-07-08] MEDS ORDERED: ASAB PO (07:46)
[2016-07-08] MEDS ORDERED: VITAMIN D1000 UNI1 PO (07:46)
[2016-07-08] MEDS ORDERED: CO Q-10200 MG PO (07:46)
[2016-07-08] MEDS ORDERED: RED YEAS1 PO (07:46)
[2016-07-08] MEDS ORDERED: COLON HEALTH PO (07:47)
[2016-07-08] MEDS ORDERED: MUCINEX600 MG PO (07:47)
[2016-07-08 09:27] LABS: BASOPHILS 0.3 %; BASOPHILS ABSOLUTE 0.02 10/3/uL (0.0-0.16); EOSINOPHILS 1.4 %; HEMOGLOBIN 9.6 g/dL (12.0-16.0); IMMATURE GRANULOCYTES 0.6 %; IMMATURE GRANULOCYTES ABSOLUTE 0.04 10/3/uL (0.0-0.11); LYMPHOCYTES 18.9 %; LYMPHOCYTES ABSOLUTE 1.32 10/3/uL (0.67-4.30); MEAN CORPUS HGB CONC 32.5 g/dL (32.0-36.0); MEAN CORPUSCULAR HEMOGLOB 28.2 pg (26.0-34.0); MEAN CORPUSCULAR VOLUME 86.5 fL (80-100); MEAN PLATELET VOLUME 9.6 fL (9.2-13.0); MONOCYTES 16.3 %; MONOCYTES ABSOLUTE 1.14 10/3/uL (0.21-1.20); NEUTROPHILS 62.5 %; NEUTROPHILS ABSOLUTE 4.38 10/3/uL (2.02-8.40); PLATELET COUNT 242 10/3/uL (150-400); RBC DISTRIBUTION WIDTH 14.5 % (12.0-16.0); RED CELL COUNT 3.41 10/6/uL (4.0-5.6)
[2016-07-08 09:29] LABS: HEMATOCRIT 29.5 % (36.0-48.0); MANUAL DIFF NO %
[2016-07-08 09:41] LABS: BUN (BLOOD UREA NITROGEN) 62 MG/DL (6-23); CALCIUM, SERUM 8.3 MG/DL (8.5-10.4); CHLORIDE, SERUM 101 MMOL/L (96-112); CO2 (CARBON DIOXIDE) 25 MMOL/L (24-34); CREATININE 2.33 MG/DL (0.55-1.02); GFR AFRICAN AMERICAN 23 ML/MIN (>=60); GFR NON AFRICAN AMERICAN 20 ML/MIN (>=60); GLUCOSE, SERUM 106 MG/DL (60-99); POTASSIUM, SERUM 4.6 MMOL/L (3.5-5.3); SODIUM, SERUM 137 MMOL/L (135-148)
[2016-07-09 04:55] LABS: BASOPHILS 0.4 %; BASOPHILS ABSOLUTE 0.02 10/3/uL (0.0-0.16); EOSINOPHILS 3.5 %; EOSINOPHILS ABSOLUTE 0.19 10/3/uL (0.0-0.53); HEMATOCRIT 29.3 % (36.0-48.0); HEMOGLOBIN 9.4 g/dL (12.0-16.0); IMMATURE GRANULOCYTES 0.9 %; IMMATURE GRANULOCYTES ABSOLUTE 0.05 10/3/uL (0.0-0.11); LYMPHOCYTES 20.6 %; LYMPHOCYTES ABSOLUTE 1.12 10/3/uL (0.67-4.30); MEAN CORPUS HGB CONC 32.1 g/dL (32.0-36.0); MEAN CORPUSCULAR HEMOGLOB 28.1 pg (26.0-34.0); MEAN CORPUSCULAR VOLUME 87.5 fL (80-100); MEAN PLATELET VOLUME 9.9 fL (9.2-13.0); MONOCYTES 19.3 %; MONOCYTES ABSOLUTE 1.05 10/3/uL (0.21-1.20); NEUTROPHILS 55.3 %; NEUTROPHILS ABSOLUTE 3.02 10/3/uL (2.02-8.40); PLATELET COUNT 254 10/3/uL (150-400); RBC DISTRIBUTION WIDTH 14.3 % (12.0-16.0); RED CELL COUNT 3.35 10/6/uL (4.0-5.6); WHITE BLOOD CELLS 5.5 10/3/uL (4.5-10.5)
[2016-07-09 04:56] LABS: CALCIUM, SERUM 9.1 MG/DL (8.5-10.4); CHLORIDE, SERUM 106 MMOL/L (96-112); CO2 (CARBON DIOXIDE) 26 MMOL/L (24-34); GFR AFRICAN AMERICAN 38 ML/MIN (>=60); GFR NON AFRICAN AMERICAN 33 ML/MIN (>=60); GLUCOSE, SERUM 113 MG/DL (60-99); POTASSIUM, SERUM 5.1 MMOL/L (3.5-5.3); SODIUM, SERUM 142 MMOL/L (135-148)
[2016-07-09 04:57] LABS: MANUAL DIFF NO %
[2016-07-09 04:59] LABS: BUN (BLOOD UREA NITROGEN) 48 MG/DL (6-23); CREATININE 1.53 MG/DL (0.55-1.02)
[2016-07-10 06:12] LABS: BASOPHILS 0.3 %; BASOPHILS ABSOLUTE 0.02 10/3/uL (0.0-0.16); EOSINOPHILS 6.3 %; EOSINOPHILS ABSOLUTE 0.41 10/3/uL (0.0-0.53); HEMATOCRIT 31.1 % (36.0-48.0); HEMOGLOBIN 9.8 g/dL (12.0-16.0); IMMATURE GRANULOCYTES 0.9 %; IMMATURE GRANULOCYTES ABSOLUTE 0.06 10/3/uL (0.0-0.11); LYMPHOCYTES 19.3 %; LYMPHOCYTES ABSOLUTE 1.25 10/3/uL (0.67-4.30); MEAN CORPUS HGB CONC 31.5 g/dL (32.0-36.0); MEAN CORPUSCULAR HEMOGLOB 28.2 pg (26.0-34.0); MEAN CORPUSCULAR VOLUME 89.6 fL (80-100); MEAN PLATELET VOLUME 10.1 fL (9.2-13.0); MONOCYTES 15.6 %; MONOCYTES ABSOLUTE 1.01 10/3/uL (0.21-1.20); NEUTROPHILS 57.6 %; NEUTROPHILS ABSOLUTE 3.73 10/3/uL (2.02-8.40); PLATELET COUNT 262 10/3/uL (150-400); RBC DISTRIBUTION WIDTH 13.8 % (12.0-16.0); RED CELL COUNT 3.47 10/6/uL (4.0-5.6); WHITE BLOOD CELLS 6.5 10/3/uL (4.5-10.5)
[2016-07-10 06:14] LABS: MANUAL DIFF NO %
[2016-07-10 06:23] LABS: CALCIUM, SERUM 9.2 MG/DL (8.5-10.4); CHLORIDE, SERUM 106 MMOL/L (96-112); CO2 (CARBON DIOXIDE) 27 MMOL/L (24-34); GFR AFRICAN AMERICAN 51 ML/MIN (>=60); GFR NON AFRICAN AMERICAN 44 ML/MIN (>=60); POTASSIUM, SERUM 5.2 MMOL/L (3.5-5.3); SODIUM, SERUM 143 MMOL/L (135-148)
[2016-07-10 06:25] LABS: BUN (BLOOD UREA NITROGEN) 36 MG/DL (6-23); GLUCOSE, SERUM 139 MG/DL (60-99)
[2016-07-11 06:38] LABS: BASOPHILS 0.4 %; BASOPHILS ABSOLUTE 0.03 10/3/uL (0.0-0.16); EOSINOPHILS ABSOLUTE 0.55 10/3/uL (0.0-0.53); HEMATOCRIT 32.8 % (36.0-48.0); HEMOGLOBIN 10.6 g/dL (12.0-16.0); IMMATURE GRANULOCYTES 0.9 %; IMMATURE GRANULOCYTES ABSOLUTE 0.06 10/3/uL (0.0-0.11); LYMPHOCYTES 18.3 %; LYMPHOCYTES ABSOLUTE 1.26 10/3/uL (0.67-4.30); MEAN CORPUS HGB CONC 32.3 g/dL (32.0-36.0); MEAN CORPUSCULAR HEMOGLOB 28.6 pg (26.0-34.0); MEAN CORPUSCULAR VOLUME 88.4 fL (80-100); MEAN PLATELET VOLUME 9.6 fL (9.2-13.0); MONOCYTES 11.8 %; MONOCYTES ABSOLUTE 0.81 10/3/uL (0.21-1.20); NEUTROPHILS 60.6 %; NEUTROPHILS ABSOLUTE 4.16 10/3/uL (2.02-8.40); PLATELET COUNT 271 10/3/uL (150-400); RBC DISTRIBUTION WIDTH 13.4 % (12.0-16.0); RED CELL COUNT 3.71 10/6/uL (4.0-5.6); WHITE BLOOD CELLS 6.9 10/3/uL (4.5-10.5)
[2016-07-11 06:40] LABS: CHLORIDE, SERUM 108 MMOL/L (96-112); CO2 (CARBON DIOXIDE) 26 MMOL/L (24-34); CREATININE 1.03 MG/DL (0.55-1.02); GFR AFRICAN AMERICAN 62 ML/MIN (>=60); GFR NON AFRICAN AMERICAN 53 ML/MIN (>=60); MANUAL DIFF NO %; POTASSIUM, SERUM 4.9 MMOL/L (3.5-5.3); SODIUM, SERUM 142 MMOL/L (135-148)
[2016-07-11 06:46] LABS: BUN (BLOOD UREA NITROGEN) 30 MG/DL (6-23); GLUCOSE, SERUM 96 MG/DL (60-99)
[2016-07-12 05:30] LABS: BUN (BLOOD UREA NITROGEN) 29 MG/DL (6-23); CALCIUM, SERUM 9.2 MG/DL (8.5-10.4); CHLORIDE, SERUM 109 MMOL/L (96-112); CO2 (CARBON DIOXIDE) 26 MMOL/L (24-34); CREATININE 1.07 MG/DL (0.55-1.02); GFR AFRICAN AMERICAN 59 ML/MIN (>=60); GFR NON AFRICAN AMERICAN 51 ML/MIN (>=60); GLUCOSE, SERUM 99 MG/DL (60-99); POTASSIUM, SERUM 4.4 MMOL/L (3.5-5.3); SODIUM, SERUM 142 MMOL/L (135-148)
[2016-07-12 05:57] LABS: BASOPHILS 0.7 %; BASOPHILS ABSOLUTE 0.04 10/3/uL (0.0-0.16); EOSINOPHILS 7.7 %; EOSINOPHILS ABSOLUTE 0.43 10/3/uL (0.0-0.53); HEMATOCRIT 29.5 % (36.0-48.0); HEMOGLOBIN 9.6 g/dL (12.0-16.0); IMMATURE GRANULOCYTES 1.3 %; IMMATURE GRANULOCYTES ABSOLUTE 0.07 10/3/uL (0.0-0.11); LYMPHOCYTES 24.1 %; LYMPHOCYTES ABSOLUTE 1.34 10/3/uL (0.67-4.30); MANUAL DIFF NO %; MEAN CORPUS HGB CONC 32.5 g/dL (32.0-36.0); MEAN CORPUSCULAR HEMOGLOB 28.4 pg (26.0-34.0); MEAN CORPUSCULAR VOLUME 87.3 fL (80-100); MEAN PLATELET VOLUME 9.6 fL (9.2-13.0); MONOCYTES 12.6 %; NEUTROPHILS 53.6 %; NEUTROPHILS ABSOLUTE 2.99 10/3/uL (2.02-8.40); PLATELET COUNT 270 10/3/uL (150-400); RBC DISTRIBUTION WIDTH 13.5 % (12.0-16.0); RED CELL COUNT 3.38 10/6/uL (4.0-5.6); WHITE BLOOD CELLS 5.6 10/3/uL (4.5-10.5)
[2016-07-18 17:54] LABS: % IRON SAT 13 % (20-50); FERRITIN 91 NG/ML (8-252); IRON BINDING CAPACITY 364 MCG/DL (225-410); IRON, SERUM 48 MCG/DL (35-150)
[2016-07-19 12:57] LABS: BASOPHILS 0.2 %; BASOPHILS ABSOLUTE 0.02 10/3/uL (0.0-0.16); EOSINOPHILS ABSOLUTE 0.52 10/3/uL (0.0-0.53); IMMATURE GRANULOCYTES 1.6 %; IMMATURE GRANULOCYTES ABSOLUTE 0.14 10/3/uL (0.0-0.11); LYMPHOCYTES 20.9 %; MEAN CORPUS HGB CONC 32.9 g/dL (32.0-36.0); MEAN CORPUSCULAR HEMOGLOB 28.7 pg (26.0-34.0); MEAN CORPUSCULAR VOLUME 87.5 fL (80-100); MEAN PLATELET VOLUME 9.4 fL (9.2-13.0); MONOCYTES 7.8 %; MONOCYTES ABSOLUTE 0.67 10/3/uL (0.21-1.20); NEUTROPHILS 63.5 %; NEUTROPHILS ABSOLUTE 5.47 10/3/uL (2.02-8.40); PLATELET COUNT 326 10/3/uL (150-400); RBC DISTRIBUTION WIDTH 13.8 % (12.0-16.0)
[2016-07-19 12:59] LABS: HEMATOCRIT 35.6 % (36.0-48.0); HEMOGLOBIN 11.7 g/dL (12.0-16.0); MANUAL DIFF NO %; RED CELL COUNT 4.07 10/6/uL (4.0-5.6); WHITE BLOOD CELLS 8.6 10/3/uL (4.5-10.5)
[2016-07-19 13:08] LABS: BUN (BLOOD UREA NITROGEN) 39 MG/DL (6-23); CALCIUM, SERUM 9.8 MG/DL (8.5-10.4); CHLORIDE, SERUM 102 MMOL/L (96-112); CO2 (CARBON DIOXIDE) 27 MMOL/L (24-34); CREATININE 1.05 MG/DL (0.55-1.02); GFR AFRICAN AMERICAN 60 ML/MIN (>=60); GFR NON AFRICAN AMERICAN 52 ML/MIN (>=60); GLUCOSE, SERUM 99 MG/DL (60-99); POTASSIUM, SERUM 4.6 MMOL/L (3.5-5.3); SODIUM, SERUM 137 MMOL/L (135-148)
[2016-07-21 05:35] LABS: BASOPHILS 0.5 %; BASOPHILS ABSOLUTE 0.04 10/3/uL (0.0-0.16); EOSINOPHILS 3.6 %; EOSINOPHILS ABSOLUTE 0.31 10/3/uL (0.0-0.53); HEMATOCRIT 32.4 % (36.0-48.0); HEMOGLOBIN 10.8 g/dL (12.0-16.0); IMMATURE GRANULOCYTES 0.8 %; IMMATURE GRANULOCYTES ABSOLUTE 0.07 10/3/uL (0.0-0.11); LYMPHOCYTES ABSOLUTE 1.96 10/3/uL (0.67-4.30); MANUAL DIFF NO %; MEAN CORPUS HGB CONC 33.3 g/dL (32.0-36.0); MEAN CORPUSCULAR VOLUME 87.1 fL (80-100); MEAN PLATELET VOLUME 9.2 fL (9.2-13.0); MONOCYTES 10.4 %; MONOCYTES ABSOLUTE 0.89 10/3/uL (0.21-1.20); NEUTROPHILS 61.7 %; NEUTROPHILS ABSOLUTE 5.27 10/3/uL (2.02-8.40); PLATELET COUNT 283 10/3/uL (150-400); RED CELL COUNT 3.72 10/6/uL (4.0-5.6); WHITE BLOOD CELLS 8.5 10/3/uL (4.5-10.5)
[2016-07-21 05:43] LABS: CALCIUM, SERUM 9.3 MG/DL (8.5-10.4); CHLORIDE, SERUM 104 MMOL/L (96-112); CO2 (CARBON DIOXIDE) 27 MMOL/L (24-34); CREATININE 0.89 MG/DL (0.55-1.02); GFR AFRICAN AMERICAN 73 ML/MIN (>=60); GFR NON AFRICAN AMERICAN 63 ML/MIN (>=60); GLUCOSE, SERUM 97 MG/DL (60-99); POTASSIUM, SERUM 4.3 MMOL/L (3.5-5.3); SODIUM, SERUM 139 MMOL/L (135-148)
[2016-07-21 05:44] LABS: BUN (BLOOD UREA NITROGEN) 31 MG/DL (6-23)
[2016-07-22 05:20] LABS: BASOPHILS 0.1 %; BASOPHILS ABSOLUTE 0.01 10/3/uL (0.0-0.16); EOSINOPHILS 0 %; HEMATOCRIT 34.3 % (36.0-48.0); HEMOGLOBIN 11.3 g/dL (12.0-16.0); IMMATURE GRANULOCYTES 0.6 %; LYMPHOCYTES 5.1 %; LYMPHOCYTES ABSOLUTE 0.85 10/3/uL (0.67-4.30); MANUAL DIFF NO %; MEAN CORPUS HGB CONC 32.9 g/dL (32.0-36.0); MEAN CORPUSCULAR HEMOGLOB 28.7 pg (26.0-34.0); MEAN CORPUSCULAR VOLUME 87.1 fL (80-100); MEAN PLATELET VOLUME 9.5 fL (9.2-13.0); MONOCYTES 4.1 %; MONOCYTES ABSOLUTE 0.67 10/3/uL (0.21-1.20); NEUTROPHILS 90.1 %; PLATELET COUNT 276 10/3/uL (150-400); RBC DISTRIBUTION WIDTH 13.8 % (12.0-16.0); RED CELL COUNT 3.94 10/6/uL (4.0-5.6); WHITE BLOOD CELLS 16.5 10/3/uL (4.5-10.5)
[2016-07-22 05:31] LABS: CALCIUM, SERUM 9.2 MG/DL (8.5-10.4); CHLORIDE, SERUM 104 MMOL/L (96-112); CO2 (CARBON DIOXIDE) 28 MMOL/L (24-34); CREATININE 0.95 MG/DL (0.55-1.02); GFR AFRICAN AMERICAN 68 ML/MIN (>=60); GFR NON AFRICAN AMERICAN 59 ML/MIN (>=60); POTASSIUM, SERUM 4.9 MMOL/L (3.5-5.3); SODIUM, SERUM 140 MMOL/L (135-148)
[2016-07-22 05:32] LABS: BUN (BLOOD UREA NITROGEN) 24 MG/DL (6-23); GLUCOSE, SERUM 147 MG/DL (60-99)
[2016-07-23 06:24] LABS: BASOPHILS 0.2 %; BASOPHILS ABSOLUTE 0.02 10/3/uL (0.0-0.16); EOSINOPHILS 0.5 %; EOSINOPHILS ABSOLUTE 0.05 10/3/uL (0.0-0.53); HEMATOCRIT 31.1 % (36.0-48.0); HEMOGLOBIN 10.1 g/dL (12.0-16.0); IMMATURE GRANULOCYTES 0.5 %; IMMATURE GRANULOCYTES ABSOLUTE 0.05 10/3/uL (0.0-0.11); LYMPHOCYTES 14.1 %; LYMPHOCYTES ABSOLUTE 1.54 10/3/uL (0.67-4.30); MEAN CORPUS HGB CONC 32.5 g/dL (32.0-36.0); MEAN CORPUSCULAR HEMOGLOB 28.9 pg (26.0-34.0); MEAN CORPUSCULAR VOLUME 88.9 fL (80-100); MEAN PLATELET VOLUME 9.5 fL (9.2-13.0); MONOCYTES 13.1 %; MONOCYTES ABSOLUTE 1.43 10/3/uL (0.21-1.20); NEUTROPHILS 71.6 %; NEUTROPHILS ABSOLUTE 7.85 10/3/uL (2.02-8.40); PLATELET COUNT 271 10/3/uL (150-400); RBC DISTRIBUTION WIDTH 14.2 % (12.0-16.0); WHITE BLOOD CELLS 10.9 10/3/uL (4.5-10.5)
[2016-07-23 06:25] LABS: MANUAL DIFF NO %
[2016-07-23 06:40] LABS: BUN (BLOOD UREA NITROGEN) 31 MG/DL (6-23); CALCIUM, SERUM 9.3 MG/DL (8.5-10.4); CHLORIDE, SERUM 104 MMOL/L (96-112); CO2 (CARBON DIOXIDE) 28 MMOL/L (24-34); CREATININE 0.92 MG/DL (0.55-1.02); GFR AFRICAN AMERICAN 71 ML/MIN (>=60); GFR NON AFRICAN AMERICAN 61 ML/MIN (>=60); GLUCOSE, SERUM 107 MG/DL (60-99); PHOSPHORUS, SERUM 2.2 MG/DL (2.5-4.5); POTASSIUM, SERUM 4.5 MMOL/L (3.5-5.3); SODIUM, SERUM 138 MMOL/L (135-148)
== END 2016-07-24 16:51 | disposition home health service (06) | DRG 981 ==
LOC: ER 23:45 → ER/OF 07-08 05:00 → IMCU 07-08 10:26 → 7NO 07-09 18:52 → SDC/OF 07-21 16:04 → IMCU 07-21 19:24 → 5SO 07-22 15:24
PROVIDERS: Emergency Medicine; Hospitalist; Internal Medicine; Nurse Practitioner Acute Care; Nurse Practitioner Gerontology
PROC: 02HV33Z Insertion of Infusion Device into Superior Vena Cava, Percutaneous Approach (ICD-10-PCS; principal; 2016-07-08)
PROC: 4A02X4A Measurement of Cardiac Electrical Activity, Guidance, External Approach (ICD-10-PCS; 2016-07-08)
PROC: 0D1N0Z4 Bypass Sigmoid Colon to Cutaneous, Open Approach (ICD-10-PCS; 2016-07-21)
DX: T83.511A Infection and inflammatory reaction due to indwelling urethral catheter, initial encounter (principal); A41.9 Sepsis, unspecified organism; J96.21 Acute and chronic respiratory failure with hypoxia; R65.21 Severe sepsis with septic shock; G92 Toxic encephalopathy; N17.9 Acute kidney failure, unspecified; L89.159 Pressure ulcer of sacral region, unspecified stage; J96.22 Acute and chronic respiratory failure with hypercapnia; G82.20 Paraplegia, unspecified; K59.2 Neurogenic bowel, not elsewhere classified; N31.9 Neuromuscular dysfunction of bladder, unspecified; N18.3 Chronic kidney disease, stage 3 (moderate); N39.0 Urinary tract infection, site not specified; E11.9 Type 2 diabetes mellitus without complications; F32.9 Major depressive disorder, single episode, unspecified; F41.9 Anxiety disorder, unspecified; M79.7 Fibromyalgia; G47.33 Obstructive sleep apnea (adult) (pediatric); B96.20 Unspecified Escherichia coli [E. coli] as the cause of diseases classified elsewhere; E66.01 Morbid (severe) obesity due to excess calories; Z68.34 Body mass index [BMI] 34.0-34.9, adult; F03.90 Unspecified dementia, unspecified severity, without behavioral disturbance, psychotic disturbance, mood disturbance, and anxiety; Z88.8 Allergy status to other drugs, medicaments and biological substances; Z88.1 Allergy status to other antibiotic agents; Z79.899 Other long term (current) drug therapy; Z79.82 Long term (current) use of aspirin; M32.9 Systemic lupus erythematosus, unspecified; D50.9 Iron deficiency anemia, unspecified; E78.5 Hyperlipidemia, unspecified; M35.00 Sjogren syndrome, unspecified; K21.9 Gastro-esophageal reflux disease without esophagitis
CPT/HCPCS: 36569; 36600; 71010; 74176; 80048; 80053; 81001; 82728; 82805; 82962; 83540; 83550; 83605; 83735; 84100; 84145; 84484; 85025; 85610; 85730; 87040; 87077; 87086; 87186; 87449; 87641; 93005; 94640; 96365; 99291; A9270-GY; C1751; J0690; J2185; J2250; J2405; J2710; J2916; J3010; P9047